=== PATIENT | female | born 1965 | race Caucasian/White ===

== ENCOUNTER 2016-11-25 11:57 | Emergency (ER) | payer BC ==
[~2016-11-25] VITALS: Ht 165.1 cm; Wt 95.3 kg
[~2016-11-25 11:57] MED LIST: HYDROCODONE BIT1 T11 PO; IRON325 M1 PO; KEFLEX500 M1 PO; MACROBID100 M1 PO; PROTONIX40 MG PO; VITAMIN D50000 I3 PO
== END 2016-11-25 15:56 | disposition left against medical advice (07) ==
LOC: ED 11:57
DX: M54.9 Dorsalgia, unspecified (principal); K21.9 Gastro-esophageal reflux disease without esophagitis

== ENCOUNTER 2018-04-11 20:31 | Inpatient (IN) | payer BC ==
[~2018-04-11] VITALS: Ht 162.5 cm; Wt 109.7 kg
--- NOTE | ~2018-04-11 | O ---
[place], [place] OPERATIVE NOTE NAME: TREVOR LIRIANO UNIT #: [id number] ROOM: 526 DOCTOR: SHOBHA LARKIN,VADIM BIRTHDATE: [birth year] DOS: 04/14/2018 PROCEDURE: Today's procedure is a part of investigation of persistent nausea, vomiting despite all the radiologic studies and hematologic studies negative is panendoscopy plus biopsy and photographic series. PREMEDICATION: Propofol. SCOPE: Olympus forward-viewing gastroscope Q10 video. REPORT: After putting the patient in left lateral position and application of lubricant to the scope, the scope was introduced. Thereafter, under direct visualization, advanced through the length of esophagus without difficulty. Small hiatal hernia approximately 2 cm was noticed, photographed, gastric pouch was entered. Moderate gastritis was noticed, photographed. Biopsy obtained for H. pylori. Duodenal bulb, second and third part within normal limit and patent. The patient extubated, tolerated the procedure well. IMPRESSION: Small hiatal hernia, gastritis, status post biopsy, ruling out Helicobacter pylori. This patient is safe for discharge on Reglan 5 mg and Protonix 40 mg daily and to follow as an outpatient. I am going to feed her soft diet tonight to see how she tolerates, to ambulate around and clinical reassessment as we go along. She is status post cholecystectomy and no medication to consider as the etiology of her nausea. Reflux however, has been noticed. VADIM YEAGER MD CM:OPRECORD:OPERATIVE NOTE [phone] VADIM YEAGER MD 04/15/18 0143 interface
--- NOTE | ~2018-04-11 | PR ---
[place], [place] PROGRESS NOTE NAME: TREVOR LIRIANO UNIT #: [id number] ROOM: 526 DOCTOR: CHELA LAWSON MD BIRTHDATE: [birth year] DOS: 04/13/2018 SUBJECTIVE: The patient is still complaining of off and on nausea and now she is constipated. OBJECTIVE: VITAL SIGNS: Blood pressure 153/89, breathing 18 times per minute, afebrile, heart rate of 84 beats per minute. GENERAL APPEARANCE: The patient is alert and oriented x 3, in no visible distress. HEENT AND NECK: Exam within normal limits. CARDIOVASCULAR SYSTEM: Heart rate is regular in rate and rhythm. S1 and S2 normally audible. LUNGS: Clear to auscultation. ABDOMEN: Soft, nontender. No obvious organomegaly. Bowel sounds are present. EXTREMITIES: Without significant cyanosis or edema. IMPRESSION: The patient with improved abdominal pains, nausea and vomiting with treatment. The patient has had intractable nausea, vomiting and severe abdominal pain since her cholecystectomy. I am increasing the dose of her ondansetron and making her take it every 8 hours for better symptom relief. The patient's liver enzymes, serum electrolytes and blood counts have been normal. I will repeat her CBC in the morning. The patient's amylase was also normal at admission and the patient has been scheduled for an imaging study tomorrow by Dr. Zuniga. 1. Nausea, vomiting, dehydration, being treated with hydration with normal saline. 2. Hypokalemia from vomiting, has been treated. Potassium levels were normal. 3. Suspected urinary tract infection, treated with Rocephin. CHELA LAWSON MD CM:PNTRANS [phone] CHELA LAWSON MD 04/14/18 1545 interface
--- NOTE | ~2018-04-11 | CON ---
[place], [place] REPORT OF CONSULTATION NAME: TREVOR LIRIANO UNIT #: [id number] ROOM: 526 DOCTOR: VADIM YEAGER MD BIRTHDATE: [birth year] DOS: 04/14/2018 GASTROENDOSCOPIC CONSULTATION HISTORY OF PRESENT ILLNESS: A 52-year-old patient who presented with persistent epigastric distress, persistent nausea and vomiting. Vomiting has been observed by the nursing staff. She had a panel of blood work done in search of the pathology including white blood cell normal, H and H of 14 and 43, microcytic indices. Comprehensive metabolic panel, GFR greater than 60. Hypokalemia has been addressed. Liver function tests, lipase within normal limits. Urinalysis was unremarkable, 2+ bacteria, was sent for culture, no growth was seen. CT scan of the abdomen and pelvis was done. No definitive pathology, status post cholecystectomy and a small hiatal hernia was confirmed. CBC differential was reassessed. Again, no changes were noticed. Since she was refusing endoscopic evaluation of her GI tract, upper GI series were organized, which essentially ended up to be normal. Reflux has been noticed. After she had her upper GI, x-rays done and confirmed that she has no definitive answer. Finally, she changed her mind again and agreed to have an endoscopy done. This was accommodated. PAST MEDICAL HISTORY: Status post cholecystectomy and anxiety. PAST SURGICAL HISTORY: Status post cholecystectomy. SOCIAL HISTORY: Nonsmoker, nonalcohol consumer. FAMILY HISTORY: Associated with hypertension. ALLERGIES: TO VICODIN, ACETAMINOPHEN, HYDROCODONE. REVIEW OF SYSTEMS: HEENT: Denies double vision, blurred vision. RESPIRATORY: Denies shortness of breath. CARDIOVASCULAR: Denies chest pain. DIGESTIVE SYSTEM: Persistent nausea, vomiting. PHYSICAL EXAMINATION: VITAL SIGNS: Stable, nontoxic patient. HEENT: Head normocephalic, nontraumatic. Mouth and buccal mucosa benign. NECK: Supple, no thyromegaly, no cervical lymphadenopathy. CHEST: Symmetric anatomy, equal expansion. No wheeze, no rhonchi. HEART: Normal sinus rhythm, no gallop, no murmur. ABDOMEN: Obese, soft. No hepato-organomegaly. Bowel sounds present. EXTREMITIES: No cyanosis, no pedal edema. NEUROLOGIC: Alert, oriented to time, place, person. IMPRESSION AND PLAN: Persistent nausea, vomiting, etiology uncertain. Radiologic studies including CT scan and upper GI series have been unremarkable. Labs, all within normal limits. The patient finally agreed to have an EGD done [place], [place] REPORT OF CONSULTATION NAME: TREVOR LIRIANO UNIT #: [id number] ROOM: 526 DOCTOR: SHOBHA LARKIN,VADIM BIRTHDATE: [birth year] today. This will be accommodated this afternoon. VADIM YEAGER MD CM:CONSTR:REPORT OF CONSULTATION 1634 04/15/18 0138 interface
--- NOTE | ~2018-04-11 | DS ---
[place], [place] DISCHARGE SUMMARY NAME: TREVOR LIRIANO UNIT #: [id number] ROOM: 526 DOCTOR: RENNY LARKINCHELA Rose BIRTHDATE: [birth year] DOS: 04/15/2018 DISCHARGE DIAGNOSES: 1. The patient is status post cholecystectomy followed by intractable nausea and vomiting. 2. Hypokalemia resulting from recurrent vomiting. 3. Esophagogastroduodenoscopy showing gastritis and a small hiatal hernia. 4. Severe abdominal pains, resolved. 5. Urinary tract infection. 6. Morbid obesity with body mass index of 41.5. HOSPITAL COURSE: The patient presented to [facility] with recurrent nausea and vomiting after she was discharged from the [facility] where she had cholecystectomy. The patient was hydrated with normal saline and she became hypokalemic, which was replaced with potassium supplements. The patient was seen by Dr. Zuniga, the green prize packer, and he performed an EGD showing small hiatal hernia and some gastritis. The patient's liver and pancreatic enzymes are normal. The patient's nausea and vomiting has improved and she only feels that occasionally. Dr. Zuniga has cleared her for discharge on Reglan and I am also giving her Zofran as needed. The patient has been tolerating diet and feeling much better. Obesity. The patient worked with dietary. Hypokalemia from vomiting, treated and resolved with potassium supplements. Urinary tract infection suspected, on urinalysis, blood cultures came out negative. The patient was treated with ceftriaxone. Earlier, the patient had severe abdominal pains, which resolved completely with treatment. The patient has to follow up with her PCP and her surgeon if needed. LABORATORY DATA: Upper GI series were normal. Liver enzymes were normal EGD showed small hiatal hernia and some gastritis. Urine cultures were negative. DISCHARGE MANAGEMENT: Ondansetron 8 mg sublingual t.i.d. p.r.n. for nausea, vomiting, metoclopramide 5 mg t.i.d. before meals for a month, potassium chloride 40 mEq before discharge 1 dose. Follow up with PCP, Dr. Gavin Camp, and her surgeon if needed. [place], [place] DISCHARGE SUMMARY NAME: TREVOR LIRIANO UNIT #: [id number] ROOM: 526 DOCTOR: CHELA LAWSON MD BIRTHDATE: [birth year] CHELA LAWSON MD CM:LION [phone] CHELA LAWSON MD 04/16/18 0042 interface
--- NOTE | ~2018-04-11 | WRIGHTHP ---
[place], [place] PATIENT HISTORY AND PHYSICAL EXAM NAME[id number] UN[facility] #: [id number] ROOM: 526 DOCTOR: VIRIDIANA SAMUEL MD BIRTHDATE: [birth year] DOS: 04/12/2018 HISTORY OF PRESENT ILLNESS: The patient is 52 years old. She underwent a cholecystectomy on the , went home the same day, became increasingly nauseous, had multiple emesis, was brought back to [facility] where Dr. Burciaga did the procedure, was readmitted and was told that she had an allergic reaction to anesthetic, was sent home the next day after giving fluids. She also at that time was hypoxic and was ordered oxygen. She denied having any complaints after that. She went home and was doing fairly well. On , she had a milkshake and a grilled chicken sandwich, went home and became extremely nauseous, had a large emesis and since then she could not stop throwing up, so finally decided to come into the Emergency Room the evening of . She denies having any chest pains or palpitations. Does not have any fever or chills. She has minimal abdominal pain. Does not have any urinary symptoms, does not have any diarrhea, but she has severe nausea and inability to quit throwing up. PAST MEDICAL HISTORY: Significant for recent cholecystectomy. MEDICATIONS: Vitamin D 1000 units daily. SOCIAL HISTORY: Does not smoke, does not use any alcohol. She is . She has 3 grown children. PHYSICAL EXAMINATION: GENERAL: She is awake and alert and oriented this morning. VITAL SIGNS: Graphic trend shows a pressure of 154/77, pulse of 60, respirations 18 and temperature 97.6. LUNGS: Diminished breath sounds. HEART: Regular. ABDOMEN: Soft. Scars from the recent laparoscopic cholecystectomy are intact. EXTREMITIES: Without any edema. Bowel sounds present. ASSESSMENT AND PLAN: 1. The patient presents with severe abdominal pain, nausea, and emesis. CT scan of the abdomen and pelvis was negative except for some air, this could be acute gastritis. The patient is placed on IV Reglan and IV Protonix, and this morning, she is much better. We will start her on a regular diet. 2. Urine positive for ketones with hypokalemia, supplementation and IV fluids have been ordered. 3. Possible urinary tract infection. Urine culture has been reflexed. IV Rocephin has been started. [place], [place] PATIENT HISTORY AND PHYSICAL EXAM NAME: TREVOR LIRIANO UNIT #: [id number] ROOM: 526 DOCTOR: VIRIDIANA SAMUEL MD BIRTHDATE: [birth year] VIRIDIANA SAMUEL MD CM:HISPHYS:PATIENT HISTORY AND PHYSICAL EXAMINATION [phone] VIRIDIANA SAMUEL MD 04/24/18 0901 interface
--- NOTE | ~2018-04-11 | PR ---
[place], [place] PROGRESS NOTE NAME: TREVOR LIRIANO UNIT #: [id number] ROOM: 526 DOCTOR: CHELA LAWSON MD BIRTHDATE: [birth year] DOS: 04/14/2018 SUBJECTIVE: The patient has had 1 episode of nausea and vomiting this morning and she says it was induced by some smells. PHYSICAL EXAMINATION: GENERAL APPEARANCE: The patient is alert and oriented x 3, in no visible distress. VITAL SIGNS: Blood pressure 156/77, heart rate 72 beats per minute, breathing 20 times per minute, temperature 98 degrees Fahrenheit. HEENT AND NECK: Exam within normal limits. CARDIOVASCULAR SYSTEM: Heart rate is regular in rate and rhythm. S1 and S2 normally audible. LUNGS: Clear to auscultation. ABDOMEN: Soft, nontender. No obvious organomegaly. Bowel sounds are present. EXTREMITIES: Without significant cyanosis or edema. IMPRESSION: 1. Intractable nausea and vomiting, no signs of infection or biliary obstruction. The patient is being followed and going for further studies by Dr. Zuniga today and is being considered for an EGD. Liver and pancreatic enzymes have been normal. Lipase was again normal today. 2. Hypokalemia, to be replaced with potassium supplements secondary to nausea, vomiting. 3. Severe abdominal pains have resolved. 4. Urinary tract infection, treated with ceftriaxone. CHELA LAWSON MD CM:PNTRANS [id number] CHELA LAWSON MD 04/14/18 1749 interface
[2018-04-11 20:35] VITALS: BP 142/83
[2018-04-11 21:28] LABS: BASO % 0.2 % (0.0-1.0); EOS % 0.1 % (1.0-4.0); HEMATOCRIT 43.8 % (37.0-47.0); HEMOGLOBIN 14.2 g/dl (12.0-16.0); LYMPH # 1.6 10*3/uL (1.3-4.4); LYMPH % 14.6 % (27.0-41.0); MEAN CELL VOLUME 75.4 fl (81.0-99.0); MEAN CORPUSCULAR HGB 24.4 pg (27.0-31.0); MEAN CORPUSCULAR HGB CONC 32.4 g/dl (33.0-37.0); MONO # 0.8 10*3/uL (0.1-1.0); MONO % 7.2 % (3.0-9.0); NEUT # 8.4 10*3/uL (2.3-7.9); NEUT % 77.6 % (47.0-73.0); PLATELET COUNT AUTOMATED 336 10*3/uL (130-400); RED BLOOD COUNT 5.81 10*6/uL (4.10-5.10); RED CELL DISTRI WIDTH 15.9 % (0-14.5); WHITE BLOOD COUNT 10.8 10*3/uL (4.8-10.8)
[2018-04-11 21:43] LABS: ALBUMIN 3.5 gm/dl (3.1-4.5); ALKALINE PHOSPHATASE 104 U/L (45-117); BUN 11 mg/dl (7-24); CHLORIDE 97 mmol/L (98-107); CREATININE 0.72 mg/dL (0.55-1.02); LIPASE 104 U/L (73-393); POTASSIUM 3.2 mmol/L (3.5-5.1); SGOT/AST 15 IU/L (3-35); SGPT/ALT 33 U/L (12-78); SODIUM 137 mmol/L (136-145); TOTAL PROTEIN 7.3 gm/dL (6.4-8.2)
[2018-04-11 22:38] LABS: BILIRUBIN NEGATIVE (NEGATIVE); BLOOD 2+ (NEGATIVE); CLARITY SL CLOUDY (CLEAR); COLOR YELLOW (YELLOW); GLUCOSE NEGATIVE (NEGATIVE); KETONE 1+ (NEGATIVE); LEUKO ESTERASE NEGATIVE (NEGATIVE); NITRITE NEGATIVE (NEGATIVE); SPECIFIC GRAVITY 1.015 (1.005-1.030); UROBILINOGEN 0.2 E.U./dl (0.2-1.0)
[2018-04-11 22:47] LABS: BACTERIA 2+; EPITHELIAL CELLS 25-30; MUCOUS 2+; RBC 16-20 rbc/hpf (0-2)
[2018-04-12 01:05] VITALS: BP 154/77
--- NOTE | 2018-04-12 01:05 | NUR ---
A 52 YEAR OLD FEMALE PATIENT, admitted to [facility], under the services of Dr. LIZZIE LARKIN,VIRIDIANA with a diagnosis of INTRACTABLE NAUSEA AND VOMITING, DEHYDRATION. Chief complaint is ACID REFULX, NAUSEA/VOMITING, SINCE SURGERY ON THE Patient arrived via STRETCHER WITH RN from ER. Initial assessment completed. Vital signs taken and recorded. See assessment for past medical history, medications and allergies. Patient and/or family oriented to unit. [address] visitation policy reviewed. Clothing/patient valuable form completed. NAVYA HAYDEN
--- NOTE | 2018-04-12 01:07 | NUR ---
MEDICATION RECONCILLIATION COMPLETED AT THE BEDSIDE WITH PATIENT AT THIS TIME.
--- NOTE | 2018-04-12 01:10 | NUR ---
DR SAMUEL MADE AWARE OF PATIENT ARRIVAL TO THE UNIT. ORDERS RECIEVED.
[2018-04-12] MEDS ORDERED: VITAMIN D31000 UNI1 PO (01:16)
--- NOTE | 2018-04-12 02:01 | NUR ---
PATIENT MEDICATED WITH ZOFRAN PER DRS ORDERS FOR COMPLAINTS OF NAUSEA AT THIS TIME. RN WILL MONITOR FOR EFFECTIVENESS
--- NOTE | 2018-04-12 06:15 | NUR ---
DR YEAGER MADE AWARE OF CONSULT. STATES TO KEEP PATIENT NPO AUNTIL THEY DECIDE WHAT TO DO WITH PATIENT
--- NOTE | 2018-04-12 07:14 | NUR ---
PATIENT SLEEPING DURING BEDSIDE SHIFT REPORT.
--- NOTE | 2018-04-12 07:26 | NUR ---
This nurse was asked to see patient regarding wounds located to abdomen. Patient has 4 surgical incisions that are well approximated with glue. Patient denied any pain at time of assessment and states she only gets heartburn and nausea. Patient stated prior to coming in she was vomiting but hasn't since she has been here since we are giving her medication for it. She stated that she had surgery at [facility] on 04/06/18 and had to be taken back two time since the surgery for a reaction to the anesthesia. She stated the last time her stated that she needs to come here. This nurse encouraged patient to follow up with the surgeon who did the surgery regarding her wound care needs.
[2018-04-12 08:00] VITALS: BP 156/78
[2018-04-12 08:07] LABS: ALBUMIN 3.2 gm/dl (3.1-4.5); ALKALINE PHOSPHATASE 93 U/L (45-117); BUN 8 mg/dl (7-24); CHLORIDE 100 mmol/L (98-107); CREATININE 0.66 mg/dL (0.55-1.02); POTASSIUM 3.6 mmol/L (3.5-5.1); SGOT/AST 10 IU/L (3-35); SGPT/ALT 31 U/L (12-78); SODIUM 138 mmol/L (136-145); TOTAL PROTEIN 6.8 gm/dL (6.4-8.2)
[2018-04-12 12:00] VITALS: BP 146/69
--- NOTE | 2018-04-12 14:02 | NUR ---
DR. YEAGER WAS PREPARING THE PATIENT FOR EGD TODAY WITH SURGICAL TEAM; PATIENT NOTIFIED, BUT REFUSED THE PROCEDURE. OBTAINED ORDER TO NOTIFY SURGERY OF CANCELLATION AND BEGIN A SOFT DIET. PATIENT ORDERING SUPPER.
[2018-04-12 16:00] VITALS: BP 153/74
[2018-04-12 20:00] VITALS: BP 114/87
[2018-04-13] VITALS: BP 145/75
--- NOTE | 2018-04-13 04:22 | NUR ---
PATIENT MEDICATED WITH ZOFRAN AT THIS TIME FOR COMPLAINTS OF NAUSEA PER DRS ORDERS. SEE EMAR PATIENT REQUESTING TO GET SHOWER AT THIS TIME. IV SITE COVERED TO PROTECT. PATIENT ALSO STATES THAT SHE FEELS LIKE SHE "MIGHT BE CONSTIPATED" BUT "WANTS TO WAIT TO TALK TO DR ABOUT GETTING SOMETHING FOR IT" RN WILL CONTINUE TO MONITOR THIS PATIENT
--- NOTE | 2018-04-13 05:30 | NUR ---
PATIENT STATES EARLIER MEDICATION HELPED TO REDUCE HER NAUSEA
[2018-04-13 08:00] VITALS: BP 156/75
--- NOTE | 2018-04-13 08:09 | NUR ---
PATIENT C/O NAUSEA THROUGHOUT THE NIGHT AND VOMITING CLEAR LIQUID INTERMITTENTLY. STATES SITTING IN SHOWER HELPS ALLEVIATE SOME OF THE NAUSEA.
--- NOTE | 2018-04-13 08:30 | NUR ---
Irrigating Pump Operator in to see patient. She is currently not in her room. Will follow up at a later time.
--- NOTE | 2018-04-13 09:58 | NUR ---
MEDICATED WITH PRN IV ZOFRAN FOR NAUSEA.
--- NOTE | 2018-04-13 10:40 | NUR ---
Tape Recording Machine Operator in to talk to patient. Patient states lives at home with her . There are 0 steps in the home. Physician: Dr. Gavin Camp Pharmacy: [facility] Home health services: none Patient's level of ADLs: INDEPENDENT Patient has working utilities: yes DME: none Follow-up physician's appointment after d/c: she prefers to make her own follow up appt after discharge Does patient want to access PORTAL?: no Discharge plan discussed with patient. She lives at home with her . She is independent in her ADLs and ambulation. Discussed home health care services and she denies any home needs at this time. When medically stable she will be discharged to home. JOSE ANTONIO LANDEROS
--- NOTE | 2018-04-13 11:00 | NUR ---
PRN IV ZOFRAN SOMEWHAT EFFECTIVE, PER PATIENT.
[2018-04-13 12:00] VITALS: BP 153/89
[2018-04-13 16:00] VITALS: BP 166/84
--- NOTE | 2018-04-13 16:15 | NUR ---
MEDICATED WITH PRN IV ZOFRAN FOR NAUSEA AND PRN PO MILK OF MAGNESIA FOR CONSTIPATION.
[2018-04-13 20:00] VITALS: BP 131/88
[2018-04-14] VITALS (9 sets, daily range): BP systolic 117–161; BP diastolic 66–87
--- NOTE | 2018-04-14 02:52 | NUR ---
24 HR chart check completed.
--- NOTE | 2018-04-14 04:03 | NUR ---
PT IS RESTING IN BED AT THIS TIME WITH HER EYES CLOSED. THERE ARE NO SYMPTOMS OF PAIN OR DISCOMFORT NOTED. RESPIRATIONS ARE EASY AND UNLABORED. FLUIDS ARE CURRENTLY INFUSING WITH NO PROBLEMS. PT IS AWARE SHE IS NPO AT THIS TIME. CALL LIGHT IS WITHIN REACH AND BED IS IN LOWEST POSITION. WILL CONTINUE TO MONITOR PT.
--- NOTE | 2018-04-14 07:57 | NUR ---
Spoke with Aisha regarding clarification of Galluim in upper GI series. Gave her Dr. Larsen number to better clarify.
[2018-04-14 08:24] LABS: BASO % 0.4 % (0.0-1.0); EOS # 0.1 10*3/uL (0.0-0.4); EOS % 1.3 % (1.0-4.0); HEMATOCRIT 43.5 % (37.0-47.0); HEMOGLOBIN 13.4 g/dl (12.0-16.0); LYMPH # 1.7 10*3/uL (1.3-4.4); LYMPH % 20.9 % (27.0-41.0); MEAN CELL VOLUME 78.7 fl (81.0-99.0); MEAN CORPUSCULAR HGB 24.2 pg (27.0-31.0); MEAN CORPUSCULAR HGB CONC 30.8 g/dl (33.0-37.0); MEAN PLATELET VOLUME 10.3 fl (9.6-12.3); MONO # 0.6 10*3/uL (0.1-1.0); NEUT # 5.4 10*3/uL (2.3-7.9); PLATELET COUNT AUTOMATED 270 10*3/uL (130-400); RED BLOOD COUNT 5.53 10*6/uL (4.10-5.10); RED CELL DISTRI WIDTH 16.6 % (0-14.5); WHITE BLOOD COUNT 7.9 10*3/uL (4.8-10.8)
[2018-04-14 09:05] LABS: BUN 7 mg/dl (7-24); CHLORIDE 100 mmol/L (98-107); LIPASE 78 U/L (73-393); POTASSIUM 3.4 mmol/L (3.5-5.1); SODIUM 137 mmol/L (136-145)
[2018-04-14 09:09] LABS: ALKALINE PHOSPHATASE 96 U/L (45-117); CREATININE 0.68 mg/dL (0.55-1.02); SGOT/AST 12 IU/L (3-35); SGPT/ALT 26 U/L (12-78); TOTAL PROTEIN 6.6 gm/dL (6.4-8.2)
--- NOTE | 2018-04-14 12:33 | NUR ---
Spoke with Dr. Zuniga. He wanted to verify patients NPO status and condition. Patient was kept NPO and had 1 episode of emesis around 0900.
--- NOTE | 2018-04-14 13:13 | NUR ---
Left a message on Dr. Zuniga cell phone to call [phone]. GI series results are back.
--- NOTE | 2018-04-14 20:00 | NUR ---
PT RESTING IN BED WITH VISITORS AT HER SIDE. RESP-EASY AND REGULAR. NO C/O AT THIS TIME. IVF INFUSING WITH NO PROBLEM. CALL LIGHT IN REACH.
--- NOTE | 2018-04-14 21:20 | NUR ---
TOLERATED ROUTINE ZOFRAN WITH NO PROBLEM. NO C/O AT THIS TIME. CALL LIGHT IN REACH.
[2018-04-15] VITALS: BP 114/62
--- NOTE | 2018-04-15 00:20 | NUR ---
PT RESTING IN BED. RESP-EASY AND REGULAR. IVF INFUSING WITH NO PROBLEM. NO C/O AT THIS TIME. CALL LIGHT IN REACH. SEE SHIFT ASSESSMENT.
--- NOTE | 2018-04-15 04:00 | NUR ---
SLEEPING IN BED. RESP-EASY AND REGULAR. IVF INFUSING WITH NO PROBLEM. CALL LIGHT IN REACH.
--- NOTE | 2018-04-15 05:50 | NUR ---
PT RESTING IN BED. TOLERATED ROUTINE IV MEDICATION. NO C/O AT THIS TIME. CALL LIGHT IN REACH. IVF INFUSING WITH NO PROBLEM.
[2018-04-15 08:00] VITALS: BP 156/83
[2018-04-15 12:00] VITALS: BP 155/86
[2018-04-15 16:00] VITALS: BP 156/81
[2018-04-15] MEDS ORDERED: ZOFRAN 4 MG ED2 TAB SL (18:33)
[2018-04-15] MEDS ORDERED: METOCLOPRAM5 MG/1 ML PO (18:33)
--- NOTE | 2018-04-15 19:23 | NUR ---
Discharge instructions reviewed with patient/family. Patient receptive and verbalizes understanding. Follow-up care arranged. Written instructions given to patient/family. JOANNE JIMÉNEZ
--- NOTE | 2018-04-15 20:12 | NUR ---
PATIENT DISCHARGED AT THIS TIME AMBULATORY WITH .
--- NOTE | 2018-04-15 20:52 | NUR ---
ATTEMPTED TO CONTACT PATIENTS AT THIS TIME TO NOTIFY HIM THE A PRESCRIPTION WAS LEFT AT THE HOSPITAL, NUMBER WENT STRAIGHT TO VOICEMAIL.
== END 2018-04-15 20:12 | disposition home or self-care (01) | DRG 690 ==
LOC: ED 20:31 → EDHOLD 04-12 00:16 → 5E 04-12 00:16
PROVIDERS: Internal Medicine; Student in an Organized Health Care Education/Training Program; ADMIT Internal Medicine
PROC: 0DB68ZX Excision of Stomach, Via Natural or Artificial Opening Endoscopic, Diagnostic (ICD-10-PCS; principal; 2018-04-14)
DX: N39.0 Urinary tract infection, site not specified (principal); Z68.41 Body mass index [BMI] 40.0-44.9, adult; K21.9 Gastro-esophageal reflux disease without esophagitis; E87.6 Hypokalemia; F41.9 Anxiety disorder, unspecified; R11.2 Nausea with vomiting, unspecified; K29.70 Gastritis, unspecified, without bleeding; R10.9 Unspecified abdominal pain; K44.9 Diaphragmatic hernia without obstruction or gangrene; E66.01 Morbid (severe) obesity due to excess calories; E86.0 Dehydration; Z90.49 Acquired absence of other specified parts of digestive tract; Z88.6 Allergy status to analgesic agent; Z82.49 Family history of ischemic heart disease and other diseases of the circulatory system

== ENCOUNTER 2021-02-06 13:58 | Emergency (ER) | payer BC ==
[~2021-02-06] VITALS: Ht 165.1 cm; Wt 89.8 kg
[~2021-02-06 13:58] MED LIST changes: +METOCLOPRAM5 MG/1 ML PO; +VITAMIN D31000 UNI1 PO; +ZOFRAN 4 MG ED2 TAB SL
== END 2021-02-06 16:28 | disposition left against medical advice (07) ==
LOC: ED 13:58
DX: R51.9 Headache, unspecified (principal); Z53.21 Procedure and treatment not carried out due to patient leaving prior to being seen by health care provider

== ENCOUNTER → 2021-11-23 | Outpatient (CLI) | payer BC | END | disposition home or self-care (01) | LOC: US 11:00 | PROVIDERS: ATTEND Nurse Practitioner Women's Health | DX: N95.0 Postmenopausal bleeding (principal) ==

== ENCOUNTER 2022-01-09 10:40 | Emergency (ER) | payer BC ==
[~2022-01-09] VITALS: Ht 165.1 cm; Wt 90.7 kg
[2022-01-09 11:11] LABS: BILIRUBIN Negative (Negative); BLOOD 1+ (Negative); CLARITY Turbid (Clear); COLOR Yellow (Yellow); GLUCOSE Negative (Negative); KETONE Trace (Negative); LEUKO ESTERASE 3+ (Negative); NITRITE Negative (Negative); SPECIFIC GRAVITY 1.025 (1.001-1.030)
[2022-01-09 11:20] LABS: BACTERIA 4+; EPITHELIAL CELLS 21-30; WBC 21-30 wbc/hpf (0-5)
[2022-01-09 11:21] LABS: BASO % 0.3 % (0.0-1.0); EOS % 0.1 % (1.0-4.0); HEMATOCRIT 44.4 % (37.0-47.0); LYMPH % 14.7 % (27.0-41.0); MEAN CELL VOLUME 82.5 fl (81.0-99.0); MEAN CORPUSCULAR HGB 26.8 pg (27.0-31.0); MEAN CORPUSCULAR HGB CONC 32.4 g/dl (33.0-37.0); MEAN PLATELET VOLUME 10.8 fl (9.6-12.3); MONO # 0.3 10*3/uL (0.1-1.0); MONO % 4.4 % (3.0-9.0); NEUT # 5.4 10*3/uL (2.3-7.9); NEUT % 80.2 % (47.0-73.0); PLATELET COUNT AUTOMATED 255 10*3/uL (130-400); RED BLOOD COUNT 5.38 10*6/uL (4.10-5.10); RED CELL DISTRI WIDTH 15.3 % (0-14.5); WHITE BLOOD COUNT 6.8 10*3/uL (4.8-10.8)
[2022-01-09 11:26] LABS: URINE AMPHETAMINES < 1000 (1000ng/ml); URINE BARBITURATES < 200 (200ng/ml); URINE BENZODIAZEPINES < 200 (200ng/ml); URINE CANNABINOIDS (THC) < 50 (50ng/ml); URINE COCAINE < 300 (300ng/ml); URINE METHADONE < 300 (300ng/ml); URINE OPIATES < 300 (300ng/ml)
[2022-01-09 11:29] LABS: URINE PHENCYCLIDINE < 25 (25ng/ml)
[2022-01-09 11:37] LABS: ALKALINE PHOSPHATASE 95 U/L (45-117); BUN 15 mg/dl (7-24); CHLORIDE 110 mmol/L (98-107); CREATININE 0.75 mg/dL (0.55-1.02); POTASSIUM 4.1 mmol/L (3.5-5.1); SGOT/AST 19 IU/L (3-35); SGPT/ALT 29 U/L (12-78); SODIUM 143 mmol/L (136-145)
[2022-01-09 11:38] LABS: ACETAMINOPHEN (TYLENOL) < 5.0 ug/ml (10-30); ETHYL ALCOHOL < 3.0 mg/dl (<3)
[2022-01-09] MEDS ORDERED: VISTARIL25 M2 PO (13:20)
== END 2022-01-09 13:46 | disposition home or self-care (01) ==
LOC: ED 10:40
PROVIDERS: Student in an Organized Health Care Education/Training Program
DX: F43.21 Adjustment disorder with depressed mood (principal); Z79.899 Other long term (current) drug therapy; Z88.8 Allergy status to other drugs, medicaments and biological substances

== ENCOUNTER 2022-06-05 19:49 | Emergency (ER) | payer BC ==
[~2022-06-05] VITALS: Ht 165.1 cm; Wt 97.5 kg
[~2022-06-05 19:49] MED LIST changes: +VISTARIL25 M2 PO
[2022-06-05 20:21] LABS: BASO % 0.4 % (0.0-1.0); EOS # 0.2 10*3/uL (0.0-0.4); EOS % 2.5 % (1.0-4.0); HEMATOCRIT 39.3 % (37.0-47.0); LYMPH # 2.5 10*3/uL (1.3-4.4); MEAN CORPUSCULAR HGB 25.7 pg (27.0-31.0); MEAN CORPUSCULAR HGB CONC 32.1 g/dl (33.0-37.0); MEAN PLATELET VOLUME 9.5 fl (9.6-12.3); MONO # 0.5 10*3/uL (0.1-1.0); MONO % 6.7 % (3.0-9.0); NEUT # 4.1 10*3/uL (2.3-7.9); NEUT % 56.3 % (47.0-73.0); PLATELET COUNT AUTOMATED 294 10*3/uL (130-400); RED BLOOD COUNT 4.91 10*6/uL (4.10-5.10); RED CELL DISTRI WIDTH 14.3 % (0-14.5); WHITE BLOOD COUNT 7.3 10*3/uL (4.8-10.8)
[2022-06-05 20:44] LABS: ALKALINE PHOSPHATASE 79 U/L (46-116); BUN 14 mg/dl (9-23); CHLORIDE 104 mmol/L (98-107); POTASSIUM 3.8 mmol/L (3.4-5.1); SGPT/ALT 16 U/L (10-49); TOTAL PROTEIN 6.5 gm/dL (6.0-8.0)
== END 2022-06-05 23:20 | disposition home or self-care (01) ==
LOC: ED 19:49
PROVIDERS: Internal Medicine
DX: R60.0 Localized edema (principal); Z88.8 Allergy status to other drugs, medicaments and biological substances; Z98.890 Other specified postprocedural states; Z87.442 Personal history of urinary calculi

== ENCOUNTER → 2022-06-24 | Outpatient (CLI) | payer BC | END | disposition home or self-care (01) | LOC: CARD 06-22 14:00 | PROVIDERS: ATTEND Internal Medicine | DX: I07.1 Rheumatic tricuspid insufficiency (principal); M79.89 Other specified soft tissue disorders ==

== ENCOUNTER → 2023-05-09 | Day surgery (SDC) | payer BC ==
[~2023-05-09] VITALS: Ht 162.5 cm; Wt 97.5 kg
[2023-05-09 06:59] VITALS: BP 131/70
[2023-05-09 08:05] VITALS: BP 151/76
[2023-05-09 08:20] VITALS: BP 162/94
[2023-05-09 08:35] VITALS: BP 150/75
== END | disposition home or self-care (01) ==
LOC: SDC 05-05 13:15
PROVIDERS: ATTEND Obstetrics & Gynecology
DX: N95.0 Postmenopausal bleeding (principal); N84.0 Polyp of corpus uteri; F41.9 Anxiety disorder, unspecified; F32.A Depression, unspecified; Z90.49 Acquired absence of other specified parts of digestive tract; Z79.899 Other long term (current) drug therapy

== ENCOUNTER → 2024-07-25 | Outpatient (CLI) | payer BC ==
[2024-07-25 15:26] LABS: BASO % 0.3 % (0.0-1.0); EOS # 0.1 10*3/uL (0.0-0.4); EOS % 0.7 % (1.0-4.0); HEMATOCRIT 45.4 % (37.0-47.0); MEAN CELL VOLUME 78.1 fl (81.0-99.0); MEAN CORPUSCULAR HGB 24.3 pg (27.0-31.0); MEAN CORPUSCULAR HGB CONC 31.1 g/dl (33.0-37.0); MEAN PLATELET VOLUME 9.8 fl (9.6-12.3); MONO # 0.7 10*3/uL (0.1-1.0); MONO % 7.1 % (3.0-9.0); NEUT # 6.1 10*3/uL (2.3-7.9); NEUT % 66.5 % (47.0-73.0); PLATELET COUNT AUTOMATED 335 10*3/uL (130-400); RED BLOOD COUNT 5.81 10*6/uL (4.10-5.10); RED CELL DISTRI WIDTH 16.5 % (0-14.5); WHITE BLOOD COUNT 9.1 10*3/uL (4.8-10.8)
[2024-07-25 15:51] LABS: ALKALINE PHOSPHATASE 109 U/L (46-116); BUN 16 mg/dl (9-23); CHLORIDE 101 mmol/L (98-107); CHOLESTEROL 125 mg/dL (<200); LDL CHOLESTEROL 40 mg/dL (9-159); POTASSIUM 3.9 mmol/L (3.4-5.1); SGPT/ALT 21 U/L (5-49); TOTAL PROTEIN 7.4 gm/dL (6.0-8.0)
[2024-07-25 16:01] LABS: VITAMIN D, 25-HYDROXY 40.7 ng/mL (30-100)
== END | disposition home or self-care (01) ==
LOC: LAB 15:05
PROVIDERS: ATTEND Internal Medicine
DX: Z00.00 Encounter for general adult medical examination without abnormal findings (principal)

== ENCOUNTER 2024-08-20 09:02 | Emergency (ER) | payer BC ==
[~2024-08-20] VITALS: Ht 162.5 cm; Wt 108.9 kg
[2024-08-20] MEDS ORDERED: HYDROXYZINE HCL25 MG PO (09:21)
[2024-08-20 09:59] LABS: BASO % 0.4 % (0.0-1.0); EOS % 0.9 % (1.0-4.0); HEMATOCRIT 43.1 % (37.0-47.0); MEAN CELL VOLUME 78.1 fl (81.0-99.0); MEAN CORPUSCULAR HGB 24.3 pg (27.0-31.0); MEAN CORPUSCULAR HGB CONC 31.1 g/dl (33.0-37.0); MEAN PLATELET VOLUME 10.1 fl (9.6-12.3); MONO # 0.4 10*3/uL (0.1-1.0); MONO % 8.5 % (3.0-9.0); NEUT % 67.6 % (47.0-73.0); PLATELET COUNT AUTOMATED 259 10*3/uL (130-400); RED BLOOD COUNT 5.52 10*6/uL (4.10-5.10); RED CELL DISTRI WIDTH 16.4 % (0-14.5); WHITE BLOOD COUNT 4.5 10*3/uL (4.8-10.8)
[2024-08-20 10:10] LABS: ACT PARTIAL THROMBO TIME 29.7 SECONDS (20.0-32.1)
[2024-08-20 10:23] LABS: ALKALINE PHOSPHATASE 106 U/L (46-116); BUN 9 mg/dl (9-23); CHLORIDE 104 mmol/L (98-107); POTASSIUM 4.4 mmol/L (3.4-5.1); SGPT/ALT 30 U/L (5-49); TOTAL PROTEIN 6.5 gm/dL (6.0-8.0)
[2024-08-20] MEDS ORDERED: LORazepam 1 MG TAB PO ONE (10:25)
== END 2024-08-20 10:59 | disposition home or self-care (01) ==
LOC: ED 09:02
PROVIDERS: Internal Medicine
DX: F41.9 Anxiety disorder, unspecified (principal); R07.2 Precordial pain; Z88.8 Allergy status to other drugs, medicaments and biological substances; Z79.899 Other long term (current) drug therapy; Z90.49 Acquired absence of other specified parts of digestive tract

== ENCOUNTER → 2024-09-05 | Outpatient (CLI) | payer BC ==
[~2024-09-05] MED LIST changes: +HYDROXYZINE HCL25 MG PO
== END | disposition home or self-care (01) ==
LOC: LAB 14:56
PROVIDERS: ATTEND Nurse Practitioner Women's Health
DX: N85.00 Endometrial hyperplasia, unspecified (principal)

== ENCOUNTER → 2024-10-18 | Outpatient (CLI) | payer BC | END | disposition home or self-care (01) | LOC: US 12:53 | PROVIDERS: ATTEND Obstetrics & Gynecology Gynecologic Oncology | DX: N85.01 Benign endometrial hyperplasia (principal); N85.4 Malposition of uterus; R93.89 Abnormal findings on diagnostic imaging of other specified body structures ==

== ENCOUNTER → 2024-10-26 | Outpatient (CLI) | payer BC ==
[2024-10-26 14:11] LABS: PLATELET SUFFICIENCY NORMAL (NORMAL)
[2024-10-26 14:26] LABS: MEAN CELL VOLUME 79.2 fl (81.0-99.0); MEAN CORPUSCULAR HGB 24.4 pg (27.0-31.0); MEAN PLATELET VOLUME 11.5 fl (9.6-12.3); NUCLEATED RED BLOOD CELL 0.0 % (0.0-0.0); NUCLEATED RED BLOOD CELL 0.0 10*3/uL (0.0-0.0); PLATELET COUNT AUTOMATED 302 10*3/uL (130-400); RED CELL DISTRI WIDTH 17.1 % (0-14.5)
[2024-10-27 15:07] LABS: ANTI-SMOOTH MUSCLE ANTIBODY 9 Units (0-19)
== END | disposition home or self-care (01) ==
LOC: LAB 11:33
PROVIDERS: ATTEND Physician Assistant
DX: R74.01 Elevation of levels of liver transaminase levels (principal); R71.8 Other abnormality of red blood cells; R79.89 Other specified abnormal findings of blood chemistry; Z90.49 Acquired absence of other specified parts of digestive tract

== ENCOUNTER → 2024-11-12 | Outpatient (CLI) | payer BC | LOC: US 00:47 | PROVIDERS: ATTEND Physician Assistant | DX: R93.89 Abnormal findings on diagnostic imaging of other specified body structures (principal) ==

== ENCOUNTER → 2024-11-22 | Outpatient (CLI) | payer BC | END | disposition home or self-care (01) | LOC: CARD 00:21 | PROVIDERS: ATTEND Physician Assistant | DX: R94.31 Abnormal electrocardiogram [ECG] [EKG] (principal); R07.89 Other chest pain; Z82.49 Family history of ischemic heart disease and other diseases of the circulatory system ==

== ENCOUNTER → 2024-11-29 | Outpatient (CLI) | payer BC | END | disposition home or self-care (01) | LOC: CARD 00:52 | PROVIDERS: ATTEND Physician Assistant | DX: I51.7 Cardiomegaly (principal); I49.3 Ventricular premature depolarization; R07.89 Other chest pain ==